=== PATIENT | male | born 1970 | race Caucasian/White ===

== ENCOUNTER 2018-09-14 06:15 | Day surgery (SDC) | payer OTHER ==
[~2018-09-14] VITALS: Ht 167.6 cm; Wt 81.9 kg
[~2018-09-14 06:15] MED LIST: MULTIVITAMINS1 EAC7 PO; NEXIUM20 MG PO; SILDENAFIL CIT100 MG PO
--- NOTE | 2018-09-14 07:57 | NUR ---
09/14/18 Osmani7 Gregoria Muñoz 1636-PATIENT ARRIVED TO PACU DROWSY AWAKENS TO VERBAL STIMULI DENIES PAIN OR NAUSEA. WEANED TO 2L NC O2 ST 97% ABDOMEN SOFT. SB SCORE OF 4 SLEEP APNEA HANDOUT TO GO HOME WITH PATIENT.
--- NOTE | 2018-09-14 09:41 | OR ---
[facility] [address], [place] [address] Signed DATE OF OPERATION: 09/14/2018 SURGEON: Kamran Villafuerte MD PREOPERATIVE DIAGNOSES: 1. Proximal esophageal dysphagia. 2. Heartburn. 3. Gastroesophageal reflux disease. 4. Daily alcohol use. POSTOPERATIVE DIAGNOSES: 1. Moderate diffuse punctate hemorrhagic gastritis. 2. Small hiatal hernia (37-40 cm). 3. Mild to moderate distal esophagitis. PROCEDURES: EGD with CLOtest and biopsies of the duodenum, antrum, GE junction, distal esophagus and middle esophagus. ESTIMATED BLOOD LOSS: None. INDICATIONS: Robbie is a 48-year-old gentleman, who has been having trouble with heartburn and proximal esophageal dysphagia. He actually points kind of toward his larynx. He has had no evidence of a stroke. 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 He said it has been getting worse lately and his wanted to have it evaluated. He has been on Nexium. He spoke of a history of acid reflux as well. He said he often chokes on stomach acid. In the office, I gave him a pamphlet on upper endoscopy. We looked at that together along with the risks including, but not limited to gas, bloating, crampy abdominal pain, bleeding, perforation, requiring surgery, and missed diagnosis. We also discussed the need for IV sedation. He had expressed understanding and wished to proceed. DESCRIPTION OF PROCEDURE: Robbie was taken into our endoscopy suite and placed in the supine semi-recumbent position. He was given a total of 100 mcg of fentanyl and 4 mg of Versed to cover the case. His posterior oropharynx was anesthetized with Hurricaine spray. A bite block was utilized for the case. The adult gastroscope had been introduced and advanced quite readily out into the third portion of the duodenum under direct visualization of camera Electronically Signed By: KAMRAN VILLAFUERTE MD 09/14/18 0941 PATIENT NAME: ROBBIE TRAYLOR OPERATIVE REPORT DATE OF : 66 REPORT #: [id number] PHYSICIAN: KAMRAN VILLAFUERTE MD PCP: ROBBIE VELAZQUEZ MD REPORT IS CONFIDENTIAL AND NOT TO BE RELEASED WITHOUT AUTHORIZATION [facility] [address] [place] [id number] Signed without difficulty. We took a biopsy from the duodenum as well as the antrum for pathologic review. A biopsy was taken from the antrum for CLOtest. We could see no inflammatory changes in the duodenal or pyloric bulb. However, the stomach showed leza-[id number] punctate hemorrhagic gastritis diffusely. Upon retroflexion of the scope, he has a small hiatal hernia. There was no gastric or esophageal varices. The scope was withdrawn up through the area of the GE junction, which was compliant without stricture. However, he does have moderate disruption to the Z-line with some areas of linear erythema extending up in into his distal esophagus, all consistent with esophagitis. There was no evidence of any Iglesias's mucosa. We took biopsies from the Z-line and then in his distal and middle esophagus. The upper esophagus seemed to be unremarkable on visual inspection. However, we noticed that his arytenoids appeared a little edematous. After this, the gas was suctioned out and the gastroscope removed. Robbie tolerated his procedure quite well. RECOMMENDATIONS: We will see Robbie back in the office to review not only his barium swallow, but his upper endoscopy as well. Kamran Villafuerte MD ALB/MODL /[id number] cc: KAILYN Johnson MD Jonathan Hitzman, MD Copies: KAMRAN VILLAFUERTE MD, JONATHAN MD ~ Electronically Signed By: KAMRAN VILLAFUERTE MD 09/14/18 0941 PATIENT NAME: TRAYLORROBBIE OPERATIVE REPORT DATE OF : 66 REPORT #: [id number] PHYSICIAN: KAMRAN VILLAFUERTE MD PCP: ROBBIE VELAZQUEZ MD REPORT IS CONFIDENTIAL AND NOT TO BE RELEASED WITHOUT AUTHORIZATION
== END 2018-09-14 08:26 | disposition home or self-care (01) ==
LOC: OPS 06:15 → DS 06:15
PROVIDERS: Colon & Rectal Surgery
PROC: 0DB78ZX Excision of Stomach, Pylorus, Via Natural or Artificial Opening Endoscopic, Diagnostic (ICD-10-PCS; 2018-09-14)
PROC: 0DB28ZX Excision of Middle Esophagus, Via Natural or Artificial Opening Endoscopic, Diagnostic (ICD-10-PCS; 2018-09-14)
PROC: 0DB38ZX Excision of Lower Esophagus, Via Natural or Artificial Opening Endoscopic, Diagnostic (ICD-10-PCS; 2018-09-14)
PROC: 0DB48ZX Excision of Esophagogastric Junction, Via Natural or Artificial Opening Endoscopic, Diagnostic (ICD-10-PCS; 2018-09-14)
PROC: 0DB98ZX Excision of Duodenum, Via Natural or Artificial Opening Endoscopic, Diagnostic (ICD-10-PCS; principal; 2018-09-14 06:45)
DX: K21.0 Gastro-esophageal reflux disease with esophagitis (principal); K29.71 Gastritis, unspecified, with bleeding; K44.9 Diaphragmatic hernia without obstruction or gangrene; E55.9 Vitamin D deficiency, unspecified; K31.9 Disease of stomach and duodenum, unspecified; Z79.899 Other long term (current) drug therapy; Z88.0 Allergy status to penicillin
CPT/HCPCS: 86677; 99153; G0500; J2250; J3010; J7120

== ENCOUNTER 2025-06-25 02:40 | Emergency (ER) | payer BC ==
[~2025-06-25] VITALS: Ht 167.6 cm; Wt 80.0 kg
--- OUTSIDE RECORDS SUMMARY | 2025-06-25 02:42 | XMS ---
PreManage Notification: ROBBIE TRAYLOR Security Tax Clerk Events No recent Security Events currently on file CRITERIA MET - [facility] - 2 Visits in 30 Days CARE PROVIDERS There are no care providers on record at this time. Keesha has no Care Guidelines for this patient. Jayashree VISIT COUNT (12 MO.) 2 [facility] [place] [facility]. TOTAL 2 NOTE: Visits indicate total known visits. ED/[facility] VISIT TRACKING (12 MO.) 06/25/2025 02:40 [facility] [place] TYPE: Emergency COMPLAINT: - NOSE BLEED 06/20/2025 00:09 [facility] [place] TYPE: Emergency COMPLAINT: - NOSE BLEED DIAGNOSES: - Allergy status to other drugs, medicaments and biological substances - Allergy status to penicillin - Epistaxis - Other specified disorders of Eustachian tube, left ear INPATIENT VISIT TRACKING (12 MO.) No inpatient visits to display in this time frame [email or web address]
[2025-06-25] MEDS ORDERED: OXYMETAZOLINE HCL 30 ML BTL NAS ONE (03:00)
[2025-06-25 03:10] LABS: BASOPHILS 0.5 % (0.2-1.2); EOSINOPHILS 1.7 % (0.8-7.0); LYMPHOCYTES 43.4 % (21.8-53.1); MCH 30.5 PG (25.7-32.2); MCHC 33.9 g/dL (32.3-36.5); MCV 89.8 fL (79.0-92.2); MONOCYTES 9.3 % (5.3-12.2); NEUTROPHILS 44.3 % (34.0-67.9); RBC 3.74 M/uL (4.63-6.08)
[2025-06-25] MEDS ORDERED: TRANEXAMIC ACID IN NACL,ISO-OS 1,000 MG/100 ML PIGGYBACK IV ONE (03:30)
[2025-06-25 04:27] VITALS: BP 117/71
== END 2025-06-25 04:27 | disposition home or self-care (01) ==
LOC: ED 02:40
PROVIDERS: Family Medicine
DX: R04.0 Epistaxis (principal); Z88.0 Allergy status to penicillin; Z88.8 Allergy status to other drugs, medicaments and biological substances; Z87.891 Personal history of nicotine dependence
CPT/HCPCS: 30901; 36415; 85025; 96365; 99283-25; G0480